=== PATIENT | female | born 1970 | race Native Hawaiian/Other Pacific Islander ===

== ENCOUNTER → 2016-11-29 13:46 | Outpatient (CLI) | payer OTHER | END | disposition home or self-care (01) | LOC: AMB 13:46 | DX: Z04.1 Encounter for examination and observation following transport accident (principal) ==

== ENCOUNTER 2019-04-17 10:00 | Emergency (ER) | payer OTHER ==
[~2019-04-17] VITALS: Ht 160 cm; Wt 68.5 kg
[2019-04-17 10:00] VITALS: TEMP 98.7
[2019-04-17 11:34] VITALS: BP 156/108
== END 2019-04-17 11:30 | disposition home or self-care (01) ==
LOC: ED 10:00
PROC: 2W3QX1Z Immobilization of Right Lower Leg using Splint (ICD-10-PCS; principal; 2019-04-17)
DX: S92.341A Displaced fracture of fourth metatarsal bone, right foot, initial encounter for closed fracture (principal); S92.354A Nondisplaced fracture of fifth metatarsal bone, right foot, initial encounter for closed fracture
CPT/HCPCS: 99283

== ENCOUNTER 2019-06-26 11:40 | Outpatient (CLI) | payer OTHER | END 2019-06-26 12:13 | disposition short-term general hospital (02) | LOC: AMB 11:40 | DX: R07.9 Chest pain, unspecified (principal) | CPT/HCPCS: A0425; A0427 ==

== ENCOUNTER 2019-11-18 09:34 | Emergency (ER) | payer OTHER ==
[~2019-11-18] VITALS: Ht 160 cm; Wt 68.5 kg
[2019-11-18 09:49] VITALS: TEMP 97
[2019-11-18 10:15] LABS: PLATELET COUNT 239 K/uL (152-353)
[2019-11-18 10:22] LABS: POTASSIUM 4.5 mmol/L (3.6-5.2); SODIUM 134 mmol/L (136-145)
[2019-11-18 12:18] VITALS: BP 110/82
== END 2019-11-18 12:18 | disposition home or self-care (01) ==
LOC: ED 09:34
PROVIDERS: Emergency Medicine
DX: R07.81 Pleurodynia (principal); J18.9 Pneumonia, unspecified organism
CPT/HCPCS: 80053; 82550; 82553; 84484; 85027; 93005; 96372; 99283; J0696; J1885

== ENCOUNTER 2019-12-25 17:31 | Emergency (ER) | payer OTHER ==
[~2019-12-25] VITALS: Ht 160 cm; Wt 68.5 kg
[2019-12-25 17:47] VITALS: TEMP 97.9
[2019-12-25 18:33] LABS: PLATELET COUNT 265 K/uL (152-353)
[2019-12-25 18:44] LABS: POTASSIUM 4.3 mmol/L (3.6-5.2); SODIUM 132 mmol/L (136-145)
[2019-12-25 20:18] LABS: PARTIAL THROMBOPLASTIN TIME 21.1 SECONDS (24.5-33.6)
[2019-12-25 23:49] VITALS: BP 142/87
== END 2019-12-25 23:55 | disposition home or self-care (01) ==
LOC: ED 17:31
PROVIDERS: Family Medicine
DX: R07.89 Other chest pain (principal); E11.65 Type 2 diabetes mellitus with hyperglycemia; Z79.4 Long term (current) use of insulin; R42 Dizziness and giddiness
CPT/HCPCS: 80053; 81000; 82550; 84484; 85027; 85379; 85610; 85730; 87502; 87651; 93005; 96360; 96365; 96374; 96375; 99283; 99284; J1815; J1885

== ENCOUNTER 2020-10-31 10:30 | Outpatient (CLI) | payer OTHER | END 2020-10-31 20:31 | disposition home or self-care (01) | LOC: US 10:30 | PROVIDERS: ATTEND Internal Medicine | DX: N18.32 Chronic kidney disease, stage 3b (principal) ==

== ENCOUNTER 2021-01-25 14:07 | Outpatient (CLI) | payer OTHER | END 2021-01-25 20:32 | disposition home or self-care (01) | LOC: RAD 14:07 | PROVIDERS: ATTEND Registered Nurse | DX: R07.1 Chest pain on breathing (principal) ==

== ENCOUNTER 2021-10-09 10:48 | Outpatient (CLI) | payer OTHER | END 2021-10-09 19:01 | disposition home or self-care (01) | LOC: MAMMO 10:48 | PROVIDERS: ATTEND Registered Nurse | DX: N64.4 Mastodynia (principal) | CPT/HCPCS: G0279 ==

== ENCOUNTER 2021-10-31 11:20 | Outpatient (CLI) | payer OTHER | END 2021-10-31 19:13 | disposition home or self-care (01) | LOC: RAD 11:20 | PROVIDERS: ATTEND Family Medicine | DX: M25.512 Pain in left shoulder (principal); M25.511 Pain in right shoulder ==